=== PATIENT | male | born 1990 | race Caucasian/White ===

== ENCOUNTER 2024-07-30 10:01 | Emergency (ER) | payer BC, OTHER ==
[~2024-07-30] VITALS: Ht 177.8 cm; Wt 68.7 kg
[2024-07-30 11:06] VITALS: BP 125/80; PULSE 55; RESP 16; TEMP 98.9; O2SAT 98
[2024-07-30] MEDS ORDERED: IBUPROFEN 800 MG TAB PO PRN (13:15)
[2024-07-30] MEDS: KETOROLAC TROMETH 60MG/2ML VIAL IM ONE (13:25)
[2024-07-30] MEDS ORDERED: IBUP-1456 PO (15:39)
== END 2024-07-30 15:41 | disposition home or self-care (01) ==
LOC: ER 10:10
DX: M54.16 Radiculopathy, lumbar region (principal)
CPT/HCPCS: 72131; 96372; 99285; J1885